=== PATIENT | female | born 1990 | race Caucasian/White ===

== ENCOUNTER 2017-09-27 18:06 | Emergency (ER) | payer OTHER ==
[2017-09-27] MEDS ORDERED: KETOROLAC 30 MG/1 ML SDV IVP ONE (19:13)
[2017-09-27] MEDS ORDERED: NS 1,000 ML IV ONE (19:13)
[2017-09-27] MEDS ORDERED: HYOSCYAMINE SULFATE 0.125 MG TAB PO ONE (19:13)
[2017-09-27 19:27] LABS: PLATELET COUNT 176 10^3/uL (150-400)
--- NOTE | 2017-09-27 19:54 | EDPHY ---
H & P Stated Complaint: 2 days of loose stools w/ upper abd pain/30 min ago had lg dark red stool Time Seen by Provider: 09/27/17 18:51 HPI/ROS: This patient presented with a 3 day history of illness describing fevers up to 101, loose stools chills and intermittent abdominal cramping. She has been able tolerate small amounts of p. O. Intake but she notes and increasing cramping in her belly when she does eat. She came in for evaluation because she noticed a bit of blood in her stool that appeared bright in color mixed with stool. This alarmed her and her prompted their visit. Her drove her here by private vehicle. She reports the peak intensity of her cramping diffuse belly pain is been 8/10. Currently it is 3/10. Other than worsening with food she notes no exacerbating factors for the symptoms. However, She did try 600 mg of ibuprofen at 12:30 p.m. And thinks she might had slight improvement with that. ROS: Constitutional: Fever to 101. No rigors. HEENT: No URI symptoms recently except minimal coryza Pulmonary: No cough or other complaints Cardiovascular: No lightheadedness. No chest pain. No heart palpitations. GI: No abdominal distension. She has diminished food intake not due to diminished appetite, but due to apprehension of impending cramping that is triggered by eating food. : No urinary symptoms. Her last menstrual period was normal timing on September 09. Infectious disease: No recent antibiotics. No foreign travel or raw food ingestion. Integumentary: No rash Heme: No complaints no easy bruising. No bleeding from the gums. 10 point review of symptoms is otherwise negative. Source: Patient Exam Limitations: No limitations - Personal History LMP (Females 10-55): IUD In Place Current Tetanus Diphtheria and Acellular Pertussis (TDAP): Yes - Medical/Surgical History Other PMH: TA/WT - Family History Significant Family History: No pertinent family hx, Other (Family history is negative for Crohn's disease or other inflammatory bowel conditions) - Social History Smoking Status: Never smoked Alcohol Use: Occasionally Drug Use: Marijuana (Occasional marijuana) - Physical Exam Exam: Vital signs are normal. General Appearance: Alert, no distress, but mild discomfort. Eyes: Pupils equal and round no pallor or injection. ENT, Mouth: Mucous membranes dry Respiratory: There are no retractions, lungs are clear to auscultation. Cardiovascular: Regular rate and rhythm. No murmur gallop or rub. Gastrointestinal: Hypoactive, soft, minimal periumbilical tenderness with no guarding or rebound. No lower belly tenderness. Back: No CVA tenderness Neurological: GCS 15 Skin: Warm and dry, no rashes. Mucous membranes are dry Musculoskeletal: Neck is supple nontender. Extremities are symmetrical, full range of motion. Psychiatric: Mood and affect normal DIFFERENTIAL DIAGNOSIS: After history and physical exam differential diagnosis was considered for viral gastroenteritis, bacterial colitis, parasitic dysentery , autoimmune colitis Constitutional: Initial Vital Signs Temperature (C) 37 C 09/27/17 18:18 Heart Rate 72 09/27/17 18:18 Respiratory Rate 18 09/27/17 18:18 Blood Pressure 113/77 09/27/17 18:18 O2 Sat (%) 96 09/27/17 18:18 O2 Delivery Mode Room Air Allergies/Adverse Reactions: No Known Allergies Allergy (Unverified 09/27/17 18:18) Home Medications: Medication Instructions Recorded Hyoscyamine Sulfate [Levsin, 0.125 - 0.25 mg SL Q6 PRN #20 tab 09/27/17 Hyomax-Sl 0.125 mg (*)] Ondansetron Odt [Zofran Odt] 4 - 8 mg PO Q4PRN PRN #4 tab 09/27/17 Medical Decision Making ED Course/Re-evaluation: Labs: CBC is normal with exception of increased neutrophil prominence and differential. Basic metabolic panel is normal. IV normal saline bolus, Toradol and Levsin with reduction in her cramp severity to mild severity. We obtain a stool sample from the patient which is sent for PCR testing. I counseled her regarding colitis and gastroenteritis. Will send her home with Zofran and Levsin for any ongoing symptoms. Discussion: Patient with viral versus bacterial colitis most likely given her presentation. She improved significantly here with treatment. She is tolerating p.o. Intake without emesis. Patient will return home with her with plan for light diet, Zofran Levsin as needed. She understands need to return should she develop worsening symptoms. She will follow up with Gastroenterology for any ongoing symptoms if needed. - Data Points Laboratory Results: Laboratory Results 09/27/17 19:18 09/27/17 19:18 Microbiology Results: MICROBIOLOGY 09/27/17 18:55 Stool Gastrointestinal Tract Panel (PCR) - Final Campylobacter Species Medications Given: Discontinued Medications Hyoscyamine Sulfate (Levsin, Hyomax-Sl) 0.25 mg PO ONCE ONE Stop: 09/27/17 19:14 Last Admin: 09/27/17 19:25 Dose: 0.25 mg Sodium Chloride (Ns) 1,000 mls @ 0 mls/hr IV EDNOW ONE; Wide Open PRN Reason: Protocol Stop: 09/27/17 19:14 Last Admin: 09/27/17 19:26 Dose: 1,000 mls Ketorolac Tromethamine (Toradol) 15 mg IVP EDNOW ONE Stop: 09/27/17 19:14 Last Admin: 09/27/17 19:25 Dose: 15 mg Departure - Departure Disposition: Home, Routine, Self-Care Clinical Impression: Acute diarrhea Condition: Good Instructions: Acute Diarrhea (ED) Additional Instructions: Diagnosis: Acute diarrhea Plan: Levsin and Tylenol for cramping pain if needed Light diet to feel improved Zofran for nausea or vomiting as needed Drink plenty fluids The results of tonight's tests should be back by tomorrow. Will call you if he have a bacterial infection. Follow-up with medical scientist if your symptoms do not resolve without further intervention within the next few days. Return to the emergency department for any significant worsening despite the treatment plan. Referrals: Betsey Meyer DO [Primary Care Provider] - As per Instructions Adalberto Foy MD [Medical Doctor] - As per Instructions Prescriptions: Hyoscyamine Sulfate [Levsin, Hyomax-Sl 0.125 mg (*)] 0.125 - 0.25 mg SL Q6 PRN # 20 tab PRN Reason: abdominal cramping Ondansetron Odt [Zofran Odt] 4 - 8 mg PO Q4PRN PRN #4 tab PRN Reason: Vomiting
[2017-09-27 20:08] VITALS: TEMP 99; O2SAT 97
[2017-09-27 20:29] VITALS: BP 121/72; PULSE 68; RESP 14
== END 2017-09-27 20:24 | disposition home or self-care (01) ==
LOC: CED 18:06
DX: R19.7 Diarrhea, unspecified (principal); E86.9 Volume depletion, unspecified
CPT/HCPCS: 80048-PO; 81003-PO; 81015-PO; 84703-PO; 85025-PO; 96374; J1885